=== PATIENT | male | born 1980 | race Two or more races ===

== ENCOUNTER → 2016-05-16 | Day surgery (SDC) | payer OTHER ==
[~2016-05-16] MED LIST: CIPR250T30 PO; CIPR500S2 PO; EPHEDRINE PF IN SALINE 50 MG/5 ML DISP.SYRIN. IV ONE; FENTANYL PF 100 MCG/2 ML VIAL. IV PRN; FENTANYL PF 100 MCG/2 ML VIAL. ONE; HYDROMORPHONE 2 MG/ML VIAL. IV PRN; IOHEXOL 300 MG/ML 100ML VIAL. ONE; IV RINGERS,LACTATED 1000ML 1,000 ML IV SCH; LIDOCAINE 1% 1 ML SYRINGE. ID PRN; LIDOCAINE 2% 100 MG/5 ML DISP.SYRIN. ONE; MORPHINE SULFATE 2 MG/ML DISP.SYRIN. IV PRN; ONDANSETRON PF 4 MG/2 ML VIAL. IV PRN; ONDANSETRON PF 4 MG/2 ML VIAL. ONE; PROCHLORPERAZINE 10 MG/2 ML VIAL. IV PRN; PROPOFOL 20 ML IV ONE; ROCURONIUM 50 MG/5 ML VIAL. ONE; SUCCINYLCHOLINE 200 MG/10 ML VIAL. ONE
--- NOTE | 2016-05-16 10:06 | PDOC1 ---
HISTORY & PHYSICAL H&P Gagandeep Fitzpatrick [id number] 1980 05/09/2016 03:30 PM 03/26 [place] [employer] [facility], [facility] OUR PATIENTS COME FIRST [address] [place], [place] [id number] Ph. [phone] Patient: Gagandeep Fitzpatrick Date of : 1980 Date: 05/09/2016 3:30 PM Visit Type: Consult This 35 year old male presents for Abdominal pain and Vomiting. History of Present Illness: 1. Abdominal pain Duration is 3 Days. Location is epigastric, RUQ. The patient describes it as colicky, sharp and stabbing. Denies aggravating factors. Denies relieving factors. Additional information: Started with severe pain Sunday. Had again on and went to ER and was told he had sludge in GB and had abnormal LFT. Patient still has some pain and nausea. 2. Vomiting Pertinent negatives include fever, joint pain, rash and weight loss. Additional information: Had significant nausea and vomited to feel better.. INTAKE COMMENTS: Intake Comments: Nurse Note: the pt is here today with complaints of abd pain, the pt states he went to the ER and was told that he had gallbladder sludge and elevated LFT's. The pt states that he has also been constipated. PROBLEM LIST: No active problems PAST MEDICAL/SURGICAL HISTORY (Detailed) Disease/disorder Onset Date Management Date Comments knee surgery Allergies: Ingredient Reaction Medication Name Comment NO KNOWN ALLERGIES REVIEW OF SYSTEMS System Neg/Pos Details Constitutional Negative Chills, fever, malaise and weight loss. ENMT Negative Sore throat. Eyes Negative Double vision. Respiratory Negative Dyspnea and wheezing. Cardio Negative Chest pain and irregular heartbeat/palpitations. GI Positive See HPI. GI Negative See HPI. Negative Dysuria and hematuria. Endocrine Negative Cold intolerance and heat intolerance. Psych Negative Anxiety. Integumentary Negative Hives and rash. MS Negative Joint pain. Montez/Lymph Negative Easy bleeding and easy bruising. Allergic/Immuno Negative Food allergies. VITAL SIGNS Time BP mm/Hg Pulse /min Resp /min Temp F Ht ft Ht in Ht cm Wt lb Wt kg BMI kg/ m2 BSA m2 O2 Sat% 4:12 PM 122/74 90 97.9 5.0 9.00 175.26 183.80 83.370 27.14 98 Time Measured by 4:12 PM Cassie Carbajal PHYSICAL EXAM: Exam Findings Details Constitutional Normal Well developed. Eyes Normal Conjunctiva - Right: Normal, Left: Normal. Sclera - Right: Normal, Left: Normal. Nasopharynx Normal Lips/teeth/gums - Normal. Neck Exam Normal Inspection - Normal. Thyroid gland - Normal. Respiratory Normal Inspection - Normal. Auscultation - Normal. Cardiovascular Normal Regular rate and rhythm. No murmurs, gallops, or rubs. Vascular Normal Pulses - Carotids: Normal, Femoral: Normal, Dorsalis pedis: Normal. Abdomen Normal Inspection - Normal. Anterior palpation - No guarding. No abdominal tenderness. No hepatic enlargement. No splenic enlargement. No hernia. No ascites. Skin Normal Inspection - Normal. Extremity Normal No edema. Psychiatric * Oriented to time, place, person and situation. Psychiatric Normal Appropriate mood and effect. Assessment/Plan # Detail Type Description 1. Assessment Right upper quadrant abdominal pain (R10.11). Patient Plan Most likely due to microlithiasis of GB. CBD stone is also possible. 2. Assessment Common bile duct stone (K80.50). Patient Plan To do LFT and CBC and MRCP to evaluate for CBD stone. Plan Orders CBC w/diff and LFT to be performed today. Further diagnostic evaluations ordered today include(s) Magnetic resonance cholangiopancreatography (MRCP) to be performed today. 3. Assessment Calculus of gallbladder without cholecystitis without obstruction (K80.20). Patient Plan CT and sonogram done at [facility] indicates patient has sludge in GB which is equivalent to microlithiasis of the GB. 4. Assessment Abnormal LFTs (R79.89). Patient Plan Severe abdominal pain associated with elevated LFT and sludge in GB on imaging study indicates possible passage of the stone through CBD. Electronically signed by: Eric Hernandez MD 05/09/2016 04:13 PM Document generated by: Eric Hernandez 05/09/2016 04:13 PM Jay Fitzpatrick MD, Family Practice; Alex Lizama MD Internal Medicine; Tony Garcia MD, Internal Medicine; Carol Hernandez MD Internal Medicine; Eric Hernandez MD, Gastroenterology; Nico Barahona MD, Rheumatology, S. Ariel Abarca, Physical Medicine/[facility]Foreign [place] ------ 05/16/16 Patient seen and examined. No change in H&P. ERIC HERNANDEZ MD May 16, 2016 10:06
[2016-05-16 10:54] LABS: CALCIUM 9.2 mg/dL (8.5-10.1); POTASSIUM 3.7 mmol/L (3.5-5.1)
[2016-05-16 10:55] LABS: PROTHROMBIN TIME PATIENT 12.7 SEC (11.7-14.0)
[2016-05-16 11:00] LABS: ALBUMIN 3.9 g/dL (3.4-5.0); ALBUMIN/GLOBULIN RATIO 0.9 (1.0-1.7); DIRECT BILIRUBIN 2.3 mg/dL (0.0-0.2); TOTAL BILIRUBIN 3.8 mg/dL (0.2-1.0); TOTAL PROTEIN 8.1 g/dL (6.4-8.2)
[2016-05-16 11:45] VITALS: BP 131/55
--- NOTE | 2016-05-17 01:52 | ACF ---
Admission Forms Criteria ABDOMINAL PAIN Clinical Indications for Admission to Inpatient Care (Place 'X' for any and all applicable criteria): Admission is indicated for ANY ONE of the following(1)(2)(3)(4)(5): [X]I. Inpatient admission required rather than observation care (Also use Abdominal Pain: Observation Care, as appropriate) because of ANY ONE of the following: [ ]a) Severe pain requiring acute inpatient management [X]b) Identification of etiology/finding that requires inpatient care (eg, aortic dissection, free air) [ ]c) Absent bowel sounds with complete ileus(6) [ ]d) Suspected toxic megacolon [ ]e) Severe electrolyte abnormalities requiring inpatient care [ ]f) High fever or infection requiring inpatient admission as indicated by ANY ONE of following(7)(8): [ ] i) Appropriate outpatient or observational care antimicrobial treatment unavailable, not effective, or not feasible [ ] ii) Documented bacteremia [ ] iii) Temperature > 104.9 degrees F (oral) [ ] iv) T >103.1 F (oral) or < 96.8 F(rectal) that does not respond to all emergency treatment measures [ ]g) Signs of intestinal obstruction [B] [ ]h) Hemodynamic instability [ ]i) IV fluid to replace significant ongoing losses (greater than 3 L/m2 per day) (12)(13) [ ]j) Percutaneous or open drainage (eg, abscess, biliary tract ) procedures [ ]k) Parenteral nutrition regimen that must be implemented on inpatient basis [ ]l) Other condition,treatment or monitoring requiring inpatient admission. [ ]II. Peritoneal signs present [ ]III. Surgery needed that cannot be performed on an ambulatory basis. [ ]IV. Evaluation requires patient to not eat or drink for extended period ( eg, more than 24 hours). [ ]V. Contraindications and/or Inappropriate clinical situations for Observational Care in patients with abdominal pain, when ANY ONE of the following is required: [ ]a) Thorough evaluation is required to prevent catastrophic events due to delays in diagnosing (e.g.Mesenteric ischemia) 1,3 [ ]b) Patient with severe pathology or with chronic symptoms unlikely to improve in the ED stay (3) [ ]. General contraindications and/or Inappropriate clinical situations for Observational Care in patients with abdominal pain, when ANY ONE of the following is required: [ ]a) Prediction of prolongation of LOS based on ANY ONE of the following may be considered as a contraindication for observational care 2, 3, 4, 5, 6, 7, 8, 9, 10, 11 [ ]i) Age > 65 yrs. [ ]ii) Patient arriving by ambulance [ ]iii) Patient with high acuity [ ]iv) Patient requiring vital sign monitoring [ ]v) Patient on IV medication [ ]b) Systolic blood pressures 180mmHg 3,12 [ ]c) Patient with altered mental status including delirium and other alteration of consciousness, (3) [ ]d) Patient whose discharge disposition will be to a [facility] home or rehabilitation home should not be managed in Emergency Department Observation Unit. CMS rule requires 3 days hospital stay before such placement.3,13 [ ]e) Patient with failure to thrive due to broad array of etiologies 3,16,17 [ ]f) Inability to ambulate 3,14 Extended stay beyond goal length of stay may be needed for(2)(3): [ ]a) Persistent abdominal pain with suspected intra-abdominal process [ ]b) Diagnosed condition requiring continued stay (e.g., pancreatitis, complicated diverticulitis) [ ]c) Surgery (e.g., colectomy) The original [employer] [facility] content created by [employer] has been revised. The portions of the content which have been revised are identified through the use of italic text or in bold, and [facility] has neither reviewed nor approved the modified material.All other unmodified content is copyright [employer] [facility]. Please see references footnoted in the original [facility] edition 2016 Admission Criteria Met?: Yes VANGIE SONI May 17, 2016 01:52
[2016-05-17 17:14] LABS: HEP A IGM ABDY Negative (Negative)
== END | disposition home or self-care (01) ==
LOC: ENDOS 09:36
PROVIDERS: ATTEND Internal Medicine Gastroenterology
DX: K80.50 Calculus of bile duct without cholangitis or cholecystitis without obstruction (principal)
CPT/HCPCS: 36415; 43260; 74328; 80053; 80074; 82248; 85610; 85730; C1726; J0330; J2405; J2704; J3010; Q9967